=== PATIENT | female | born 1985 | race Caucasian/White ===

== ENCOUNTER 2025-03-17 17:40 | Emergency (ER) | payer BC, SELFPAY ==
--- NOTE | ~2025-03-17 | XR_ITS ---
CHEST RADIOGRAPH CLINICAL HISTORY: shortness of breath . COMPARISON: None available TECHNIQUE: Single portable view of the chest. FINDINGS The cardiomediastinal silhouette is unremarkable. The lungs are clear. Visualized osseous structures and soft tissues are unremarkable. IMPRESSION: No focal infiltrate or effusion. Reviewed, dictated and finalized at location A.
--- NOTE | 2025-03-17 17:45 | ED.SOB ---
HPI - SOB/Dyspnea General Chief Complaint: Shortness of Breath/Dyspnea Stated Complaint: shortness of breath Time Seen by Provider: 03/17/25 17:44 Source: patient Mode of arrival: ambulatory Limitations: no limitations History of Present Illness HPI Narrative: 40-year-old female, smoker( 20 years at half pack to 1 pack a day) presents to the ED with a one-week history of -- shortness of breath. -- Nonproductive cough no chest pain. no fever -- palpitation. MD elicited complaint: shortness of breath Onset (ago): week(s) ( 1 week) Severity: mild Exacerbating factors: nothing Relieving factors: nothing Associated symptoms: denies other symptoms Treatment prior to arrival: none Related Data Home oxygen amount: none Allergies Allergy/AdvReac Type Severity Reaction Status Date / Time prednisone Allergy Unknown Agitated Verified 03/17/25 17:47 Review of Systems Review of Systems: All systems reviewed & are unremarkable except as noted in HPI and below Constitutional: Constitutional: Reports as per HPI and Reports no additional constitutional complaints Eyes: Eyes: Reports as per HPI and Reports no additional eye complaints ENT: Reports system reviewed and no additional complaints, except as documented Cardiovascular: Cardiovascular: Reports as per HPI, Reports no additional cardiovascular complaints and Reports rapid heart rate Respiratory: Respiratory: Reports as per HPI, Reports no additional respiratory complaints, Reports cough, Reports dyspnea and Reports wheezing Comments: patient has cough with sputum production multiple months an year Gastrointestinal: Gastrointestinal: Reports as per HPI and Reports no additional gastrointestinal complaints Genitourinary: Genitourinary: Reports no additional female genitourinary complaints and Reports as per HPI Musculoskeletal: Musculoskeletal: Reports no additional musculoskeletal complaints and Reports as per HPI Integumentary/Breasts: Skin/Breast: Reports system reviewed and no additional complaints, except as docu and Reports as per HPI Neurologic: Reports system reviewed and no additional complaints, except as documented and Reports as per HPI Psychiatric: Psychiatric: Reports no additional psychiatric complaints and Reports as per HPI Endocrine: Endocrine: Reports no additional endocrine complaints and Reports as per HPI Hematologic/Lymphatic: Hematologic/Lymphatic: Reports no additional hematologic/lymphatic complaints and Reports as per HPI Allergic/Immunologic: Allergic/Immunologic: Reports no additional allergic/immunologic complaints and Reports as per HPI [facility] Social History Social History (Updated 03/17/25 @ 17:55 by Lui Montoya MD) Smoking packs per day: 0.5 Smoking cigarettes per day: 10.0 Years smoked: 20 Smoking pack-years: 10.00 Exam Narrative: afebrile. Oxygen saturation of 99% on room air with a respiratory rate of 20. Const: General: no acute distress Nutritional Appearance: thin Orientation/consciousness: patient oriented x3 Limitations: no limitations HENMT: Head: normal to inspection Ears: external ears normal Face/Nose/Sinus: Normal external nose present Face and sinus: normal facial exam Mouth: Yes Normal oral and palatal mucosa present Throat: posterior oropharynx normal Eyes: Conjunctivae: conjunctivae normal Pupils: Equal, round and reactive pupils present EOM: EOMs intact bilaterally Direct Ophthalmoscopy: no photophobia Neck: Neck: normal visual inspection, no lymphadenopathy and no meningeal signs Chest: Chest palpation & inspection: normal inspection of the chest Resp: Effort & Inspection: normal respiratory effort Auscultation: diminished lung sounds Cardio: Rate: regular rate Rhythm: regular rhythm GI: GI Palp: Yes Soft to palpation Auscultation: normal bowel sounds Other: No tenderness/rigidity / rebound. : General: Yes no CVA tenderness Back/Spine/Pelvis: Back: no CVA tenderness Skin: General skin exam: normal color Rashes: no rashes Wounds: no wounds Neuro: General: patient oriented x3, moves all extremities, no meningeal signs, no focal motor deficits and CN's II-XI intact bilaterally Cranial nerves: Yes Nystagmus not present Speech: normal speech Extrem: General: normal to inspection and no clubbing, cyanosis or edema Psych: Mental Status: mental status grossly normal Affect: Anxious affect present Course Course Emergency Course: COPD exacerbation-- patient received Solu-Medrol 125, DuoNeb treatment Vital Signs Vital signs: Vital Signs Temperature 37.1 C 03/17/25 17:48 Pulse Rate 74 03/17/25 17:48 Respiratory Rate 20 03/17/25 17:48 Blood Pressure 114/74 03/17/25 17:48 Pulse Oximetry 99 03/17/25 17:48 Oxygen Delivery Room Air 03/17/25 17:48 Temperature 37.1 C 03/17/25 17:48 Pulse Rate 84 03/17/25 18:18 Respiratory Rate 20 03/17/25 18:18 Blood Pressure 124/71 03/17/25 18:18 Pulse Oximetry 100 03/17/25 18:18 Oxygen Delivery Room Air 03/17/25 18:18 MDM - SOB/Dyspnea MDM Narrative Medical decision making narrative: COPD exacerbation Differential Diagnosis Differential diagnosis: Likely acute exacerbation of chronic obstructive airways disease, congestive heart failure and community acquired pneumonia Medical Records Attestation: I reviewed the patient's medical records. Lab Data Attestation: I reviewed the patient's lab results. Imaging Data My impression: chest x-ray did not show any infiltrates evidence of CHF. Discharge Plan Discharge Clinical Impression: COPD exacerbation Patient Disposition: Home Condition: Stable Instructions: Antibiotic Form, Chronic Lung Disease and Infection Prevention (ED) Additional Instructions: patient has Combivent inhaler at home Patient Language: Hungarian Prescriptions: New prednisone 20 mg tablet 20 mg PO BID Qty: 10 0RF amoxicillin-pot clavulanate 875-125 mg tablet 1 tablet PO Q12H Qty: 14 0RF Follow-up/Referrals: UNKNOWN,DOCTOR [Primary Care Provider] - Time of Disposition: 18:41
[2025-03-17 17:48] VITALS: BP 114/74; PULSE 74; RESP 20; TEMP 37.1; O2SAT 99
[2025-03-17] MEDS: methylPREDNISolone SOD SUCC 125 MG VIAL IM (18:04)
[2025-03-17 18:05] VITALS: PULSE 74; RESP 20; O2SAT 99
[2025-03-17] MEDS: IPRATROPIUM 0.5 MG/ALBUTEROL SULFATE 2.5 MG AMPUL.NEB 3 ML INHALATION (18:05)
[2025-03-17 18:14] VITALS: PULSE 84; RESP 20; O2SAT 100
[2025-03-17 18:18] VITALS: BP 124/71; PULSE 84; RESP 20; O2SAT 100
[2025-03-17 18:48] VITALS: BP 124/72; PULSE 82; RESP 20; TEMP 36.6; O2SAT 100
== END 2025-03-17 18:48 | disposition home or self-care (01) ==
PROVIDERS: Emergency Provider Internal Medicine Critical Care Medicine
DX: J44.1 Chronic obstructive pulmonary disease with (acute) exacerbation (principal); F17.210 Nicotine dependence, cigarettes, uncomplicated
CPT/HCPCS: 71045; 94640; 96372; 99283; J2919

== ENCOUNTER 2025-04-22 10:39 | Outpatient (CLI) | payer BC, SELFPAY | END 2025-04-22 10:40 | disposition home or self-care (01) | LOC: CHSCARD 10:41 | PROVIDERS: PCP Family Medicine; Visit Provider Family Medicine | DX: J44.1 Chronic obstructive pulmonary disease with (acute) exacerbation (principal); R94.2 Abnormal results of pulmonary function studies | CPT/HCPCS: 94060; 94726; 94729 ==